=== PATIENT | female | born 1990 | race Two or more races ===

== ENCOUNTER → 2016-10-21 | Outpatient (CLI) | payer OTHER ==
[2016-07-18 16:15] VITALS: BP 116/66
[~2016-10-21] MED LIST: CALC200T3 PO; DOCU-27 PO; MEDR150D3 IM; NAPR500T PO; NITR100C62 PO; OXYC-323 PO; PREN1TAB54 PO
--- NOTE | 2016-10-21 13:05 | KCIC ---
PROCEDURE Obstetric ultrasound. HISTORY Uterine size/date discrepancy. FINDINGS Sonographic evaluation of the uterus and fetus was performed transabdominally. The cervix is closed and measures 4.3 centimeters. There is a single fetus in vertex presentation. heart rate is 157 beats per minute. Estimated gestational age based on measurements is 19 weeks 0 days. The placenta is anterior. There is no placenta previa. Amniotic fluid volume is visually normal. Images of the brain reveal no hydrocephalus. The choroid plexus appears normal. The stomach bubble is visualized. The heart is four-chamber on real-time scanning, but this is not clearly demonstrated on these images. extremities appear normal. The cord is three-vessel. The bladder is visualized. Images of the kidneys reveal no hydronephrosis. No was/lip morphology appears normal. The diaphragm is complete. Visualization of the spine is limited, but no defects are appreciated. The profile appears normal. IMPRESSION - Single fetus in vertex presentation. heart rate 157 beats per minute. Estimated gestational age based on measurements 19 weeks 0 days. - The assessment of the heart, spine and brain were limited currently. No anomalies are seen. Follow-up could further evaluate. Electronically signed by: Eliseo Washington (Oct 21, 2016 13:04:18)
== END | disposition home or self-care (01) ==
LOC: KCIC US 10:22
PROVIDERS: ATTEND Obstetrics & Gynecology
DX: O26.841 Uterine size-date discrepancy, first trimester (principal); Z3A.14 14 weeks gestation of pregnancy
CPT/HCPCS: 76805

== ENCOUNTER 2016-12-21 20:38 | Observation (INO) | payer OTHER ==
[2016-07-18 16:15] VITALS: BP 116/66
[2016-12-21] MEDS ORDERED: IV RINGERS,LACTATED 1000ML 1,000 ML IV SCH (20:45)
[2016-12-21] MEDS ORDERED: CYCLOBENZAPRINE 10 MG TABLET. PO ONE (22:00)
== END 2016-12-21 23:24 | disposition home or self-care (01) ==
LOC: 3 SO LND 20:38
PROVIDERS: ADMIT Obstetrics & Gynecology; ATTEND Obstetrics & Gynecology
DX: O26.892 Other specified pregnancy related conditions, second trimester (principal); M54.5 Low back pain; M25.552 Pain in left hip; Z3A.27 27 weeks gestation of pregnancy
CPT/HCPCS: G0378; G0379

== ENCOUNTER 2017-03-03 12:44 | Observation (INO) | payer OTHER ==
[2016-07-18 16:15] VITALS: BP 116/66
[~2017-03-03 12:44] MED LIST changes: +DOCU-109 PO; -DOCU-27 PO
[2017-03-03] MEDS ORDERED: IV RINGERS,LACTATED 1000ML 1,000 ML IV SCH (12:58)
[2017-03-03] MEDS ORDERED: LIDOCAINE 1% PF 30 ML VIAL. INJ PRN (13:00)
[2017-03-03] MEDS ORDERED: OXYTOCIN 30 UNIT/500 ML PREMIX 500 ML IV PRN ×2 (13:00)
[2017-03-03] MEDS ORDERED: fentaNYL PF VIAL 100 MCG/2 ML VIAL IV PRN (13:00)
[2017-03-03] MEDS ORDERED: BUTORPHANOL 2 MG/ML VIAL. IV PRN (13:00)
[2017-03-03] MEDS ORDERED: ACETAMINOPHEN 325 MG TABLET. PO PRN (13:00)
[2017-03-03] MEDS ORDERED: MAG HYDROX/ALUMINUM HYD/SIMETH 30 ML ORAL.SUSP PO PRN (13:00)
[2017-03-03] MEDS ORDERED: DOCUSATE SODIUM 283 MG/5 ML ENEMA. PR PRN (13:00)
[2017-03-03] MEDS ORDERED: 0.9 % SODIUM CHLORIDE 10 ML DISP.SYRIN. IV PRN (13:00)
[2017-03-03] MEDS ORDERED: CITRIC ACID/SODIUM CITRATE 30 ML SOLUTION. PO PRN (13:00)
[2017-03-03] MEDS ORDERED: ZOLPIDEM 5 MG TABLET. PO PRN (13:00)
[2017-03-03] MEDS ORDERED: TERBUTALINE 1 MG/ML VIAL. SQ PRN (13:00)
[2017-03-03] MEDS ORDERED: ONDANSETRON PF 4 MG/2 ML VIAL. IV PRN (13:00)
== END 2017-03-03 17:15 | disposition home or self-care (01) ==
LOC: 3 SO LND 12:44
PROVIDERS: ADMIT Obstetrics & Gynecology; ATTEND Obstetrics & Gynecology
DX: Z34.93 Encounter for supervision of normal pregnancy, unspecified, third trimester (principal); Z3A.37 37 weeks gestation of pregnancy
CPT/HCPCS: C1887; G0378; G0379

== ENCOUNTER 2017-03-09 19:57 | Observation (INO) | payer OTHER ==
[2016-07-18 16:15] VITALS: BP 116/66
== END 2017-03-09 23:57 | disposition home or self-care (01) ==
LOC: 3 SO LND 19:57
PROVIDERS: ADMIT Obstetrics & Gynecology; ATTEND Obstetrics & Gynecology
DX: O62.9 Abnormality of forces of labor, unspecified (principal); Z3A.38 38 weeks gestation of pregnancy
CPT/HCPCS: G0378; G0379

== ENCOUNTER 2017-03-11 21:47 | Inpatient (IN) | payer OTHER ==
[~2017-03-11] VITALS: Ht 152.4 cm; Wt 82.1 kg
[2017-03-11] MEDS ORDERED: 0.9 % SODIUM CHLORIDE 10 ML DISP.SYRIN. IV PRN (22:30)
[2017-03-11] MEDS ORDERED: fentaNYL PF VIAL 100 MCG/2 ML VIAL IV PRN (22:30)
[2017-03-11] MEDS ORDERED: ACETAMINOPHEN 325 MG TABLET. PO PRN (22:30)
[2017-03-11] MEDS ORDERED: BUTORPHANOL 2 MG/ML VIAL. IV PRN ×2 (22:30)
[2017-03-11] MEDS ORDERED: LIDOCAINE 1% PF 30 ML VIAL. INJ PRN (22:30)
[2017-03-11] MEDS ORDERED: TERBUTALINE 1 MG/ML VIAL. SQ PRN (22:30)
[2017-03-11] MEDS ORDERED: IBUPROFEN 600 MG TABLET. PO PRN (22:30)
[2017-03-11] MEDS ORDERED: OXYTOCIN 30 UNIT/500 ML PREMIX 500 ML IV PRN (22:30)
[2017-03-11] MEDS ORDERED: ONDANSETRON PF 4 MG/2 ML VIAL. IV PRN (22:30)
[2017-03-11 22:33] VITALS: BP 115/55
[2017-03-11 22:38] LABS: HEMATOCRIT 34.4 % (36.0-47.0); HEMOGLOBIN 11.9 g/dL (12.0-15.5); RED BLOOD COUNT 3.95 x10^6/uL (3.50-5.40); RED CELL DISTRIBUTION WIDTH 14.3 % (11.5-14.5); WHITE BLOOD COUNT 16.1 x10^3/uL (4.0-11.0)
[2017-03-11] MEDS ORDERED: OXYTOCIN 30 UNIT/500 ML PREMIX 500 ML IV ONE (23:00)
[2017-03-11] MEDS ORDERED: PENICILLIN G K 5,000,000 UNIT in IV NORMAL SALINE 100ML 100 ML IV ONE (23:00)
[2017-03-11] MEDS: IV RINGERS,LACTATED 1000ML 1,000 ML IV SCH ×2 (23:11→23:12)
[2017-03-11] MEDS ORDERED: ROPIVacaine 0.2% IN 0.9%NACL PF 40 MG/20 ML DISP.SYRIN. ONE (23:50)
[2017-03-11] MEDS ORDERED: L&D EPIDURAL CASSETTE 0 ML EP ONE (23:50)
--- NOTE | 2017-03-12 01:28 | PDOC1 ---
OB - History Hx of Present Care: Good Care Ultrasounds: Normal mid trimester US Obstetrical Complications: None Medical Complications: None Past Family/Social History * Past Medical, Surgical, Family and Obstetric Histories reviewed from chart. Blood Type: O+ Rubella: Immune RPR/VDRL: Negative GBS Status: Unknown HBsAG: Negative OB - Chief Complaint & HPI Date of Admission: Date of Admission: Mar 11, 2017 at 21:47 Chief Complaint/History : 3 Para: 2 EGA: 39 Reason for admission: active labor Admission Nurse Assessment Rev: Yes Problems: OB - Admission Exam Physical Exam Vitals: VS - Last 72 Hours, by Label Date Time Temp Pulse Resp B/P (MAP) Pulse Ox O2 Delivery O2 Flow Rate FiO2 03/11/17 22:33 98.6 99 20 115/55 (75) Room Air 98.6 HEENT: Normal Heart: Regular Rate Lungs: Clear Abdomen: Gravid, Non tender, Soft Extremities: Edema Reflexes: Normal Cervical Dilatation: 5cm Effacement: 75% Station: -2 Membranes: Ruptured Amniotic Fluid: Clear Heart Rate: Normal Accelerations: Accelerations Present Decelerations: No decelerations 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 Start Pen G prophylaxis. JOHN WOODS Jr, MD Mar 12, 2017 01:28
[2017-03-12] MEDS ORDERED: PHENYLEPH/MINERAL OIL/PETROLAT RECTAL OINTMENT 28GM TUBE. RC PRN (01:30)
[2017-03-12] MEDS ORDERED: MAGNESIUM HYDROXIDE 2,400 MG/30 ML ORAL.SUSP. PO PRN (01:30)
[2017-03-12] MEDS ORDERED: 0.9 % SODIUM CHLORIDE 10 ML DISP.SYRIN. IV PRN (01:30)
[2017-03-12] MEDS ORDERED: BENZOCAINE 20% TOPICAL AEROSOL SPRAY 57GM CAN. TP PRN (01:30)
[2017-03-12] MEDS ORDERED: OXYTOCIN 30 UNIT/500 ML PREMIX 500 ML IV PRN (01:30)
[2017-03-12] MEDS ORDERED: ACETAMINOPHEN 325 MG TABLET. PO PRN (01:30)
[2017-03-12] MEDS ORDERED: SIMETHICONE 80 MG TAB.CHEW PO PRN (01:30)
[2017-03-12] MEDS ORDERED: MAG HYDROX/ALUMINUM HYD/SIMETH 30 ML ORAL.SUSP PO PRN (01:30)
[2017-03-12] MEDS ORDERED: diphenhydrAMINE HCL 25 MG CAPSULE PO PRN (01:30)
[2017-03-12] MEDS ORDERED: ZOLPIDEM 5 MG TABLET. PO PRN (01:30)
[2017-03-12] MEDS ORDERED: HYDROCORTISONE 1% TOPICAL OINTMENT 30GM TUBE. TP PRN (01:30)
[2017-03-12] MEDS ORDERED: MMR per PROTOCOL. MC PRN (01:30)
--- NOTE | 2017-03-12 01:30 | PDOC ---
VAGINAL DELIVERY DATE DATE: 03/12/17 TIME: 01:29 : 3 Para: 3 EGA: 39 VAGINAL DELIVERY: VTX VACCUM ASSISTED: No PLACENTA: Spontaneous 8/9 SEX: Female WEIGHT Weight [3165 gm ] Nuchal Cord: No Amniotic Fluid: Clear PAIN: Local EPISIOTOMY: No EXTENSION: No EBL 300 ml COMPLICATIONS none CONDITION pt. stable Signs of Intrauterine Infectio: None Shoulder Dystocia: No Problems: JOHN WOODS Jr, MD Mar 12, 2017 01:30
[2017-03-12] MEDS: IBUPROFEN 800 MG TABLET. PO PRN ×2 (02:11→13:10)
[2017-03-12] MEDS: oxyCODONE/APAP 5/325 1 TAB TABLET PO PRN ×4 (02:11→20:20)
[2017-03-12] MEDS ORDERED: PENICILLIN G K 2,500,000 UNIT in IV NORMAL SALINE 50ML 50 ML IV SCH (03:00)
[2017-03-12 04:15] VITALS: BP 94/55
[2017-03-12] MEDS: DOCUSATE SODIUM 100 MG CAPSULE. PO PRN (08:19)
[2017-03-12 10:23] VITALS: BP 91/54
[2017-03-12] MEDS ORDERED: IV RINGERS,LACTATED 1000ML 1,000 ML IV SCH (13:45)
[2017-03-12 14:22] VITALS: BP 76/41
[2017-03-12 15:00] VITALS: BP 100/60
[2017-03-12 19:57] VITALS: BP 94/53
[2017-03-13 04:43] LABS: BASO % 0 % (0-3); EOS % 2 % (0-3); HEMATOCRIT 34.8 % (36.0-47.0); HEMOGLOBIN 11.7 g/dL (12.0-15.5); LYMPH # 2.8 x10^3/uL (1.0-4.8); LYMPH % 34 % (24-48); MEAN CORPUSCULAR HEMOGLOBIN 30 pg (25-35); MEAN CORPUSCULAR HGB CONC 34 g/dL (31-37); MEAN CORPUSCULAR VOLUME 88 fL (79-100); MONO % 6 % (0-9); NEUT % 58 % (31-73); PLATELET COUNT 298 x10^3/uL (140-400); RED BLOOD COUNT 3.97 x10^6/uL (3.50-5.40); RED CELL DISTRIBUTION WIDTH 14.7 % (11.5-14.5); WHITE BLOOD COUNT 8.3 x10^3/uL (4.0-11.0)
[2017-03-13 04:54] VITALS: BP 104/66
[2017-03-13] MEDS: DOCUSATE SODIUM 100 MG CAPSULE. PO PRN (07:20)
[2017-03-13] MEDS: IBUPROFEN 800 MG TABLET. PO PRN ×2 (07:20→14:20)
[2017-03-13 07:29] LABS: RPR REFLEX Non Reactive (Non Reactive)
[2017-03-13] MEDS ORDERED: FERROUS SULFATE 325 MG TABLET. PO SCH (08:00)
--- NOTE | 2017-03-13 08:51 | PDOC ---
Date and Time Patient seen 03/13/17 08:20 Known inadvertent dural puncture during labor epidural placement 03/11. Also c/o neck pain/spasm. Positional headache that resolves when supine. No visual changes or nausea. Neck is supple with full range of motion, afebrile. Options discussed with patient, she wants to wait to see if headache resolves without another procedure. I instructed her to call us if her if she develops nausea, visual changes, or if her headache worsens or changes in any way. She understands, questions answered. Discussed with Dr Head. Current Medications Current Medications Sodium Chloride (Normal Saline Flush) 3 ml QSHIFT PRN IV AFTER MEDS AND BLOOD DRAWS; Start 03/11/17 at 22:30; Stop 03/12/17 at 01:43; Status DC Ringer's Solution 1,000 ml @ 125 mls/hr Q8H IV Last administered on 03/11/17t 23:12; Start 03/11/17 at 22:18 Butorphanol Tartrate (Stadol) 1 mg PRN Q1HR PRN IV mild to moderate labor pain ; Start 03/11/17 at 22:30 Butorphanol Tartrate (Stadol) 2 mg PRN Q1HR PRN IV Severe labor pain; Start 03/11/17 at 22:30 Fentanyl Citrate (Fentanyl 2ml Vial) 100 mcg PRN Q10MIN PRN IV Labor pain; Start 03/11/17 at 22:30 Acetaminophen (Tylenol) 650 mg PRN Q6HRS PRN PO MILD PAIN / TEMP; Start at 22:30; Stop 03/12/17 at 01:43; Status DC Ondansetron HCl (Zofran) 4 mg PRN Q4HRS PRN IV NAUSEA/VOMITING; Start 03/11/17 at 22:30 Terbutaline Sulfate (Brethine) 0.25 mg 1X PRN PRN SQ SEE COMMENTS; Start at 22:30; Stop 03/12/17 at 22:29; Status DC Lidocaine HCl 30 ml 1X PRN PRN INJ SEE COMMENTS; Start 03/11/17 at 22:30; Stop 03/13/17 at 22:29 Oxytocin/Sodium Chloride 500 ml @ 0 mls/hr CONT PRN PRN IV Post delivery bleeding; Start 03/11/17 at 22:30 Ibuprofen (Motrin) 600 mg PRN Q6HRS PRN PO MODERATE PAIN; Start 03/11/17 at 22: 30; Stop 03/12/17 at 01:43; Status DC Penicillin G Potassium [id number] unit/Sodium Chloride 100 ml @ 100 mls/hr 1X ONCE IV Last administered on 03/11/17 23:11; Start 03/11/17 at 23:00; Stop at 23:59; Status DC Penicillin G Potassium [id number] unit/Sodium Chloride 50 ml @ 100 mls/hr Q4H IV ; Start 03/12/17 at 03:00 Oxytocin/Sodium Chloride 500 ml @ 0 mls/hr 1X ONCE IV Last administered on 03/11 23:11; Start 03/11/17 at 23:00; Stop 03/11/17 at 23:01; Status DC Ropivacaine/ Fentanyl/NS 0 ml @ As Directed STK-MED ONCE EP ; Start 03/11/17 at 23:50; Stop 03/11/17 at 23:51; Status DC Ropivacaine 40 mg STK-MED ONCE .ROUTE ; Start 03/11/17 at 23:50; Stop 03/11/17 at 23:51; Status DC Sodium Chloride (Normal Saline Flush) 10 ml QSHIFT PRN IV AFTER MEDS AND BLOOD DRAWS; Start 03/12/17 at 01:30 Oxytocin/Sodium Chloride 500 ml @ 62.5 mls/hr CONT PRN IV SEE I/O RECORD; Start 03/12/17 at 01:30; Stop 03/12/17 at 09:29; Status DC Acetaminophen (Tylenol) 650 mg PRN Q6HRS PRN PO MILD PAIN / TEMP; Start at 01:30 Ibuprofen (Motrin) 800 mg PRN Q8HRS PRN PO INFLAMMATION/PAIN PREVENTION Last administered on 03/13/17 07:20; Start 03/12/17 at 01:30 Docusate Sodium (Colace) 100 mg PRN BID PRN PO CONSTIPATION Last administered on 03/13/17 07:20; Start 03/12/17 at 01:30 Magnesium Hydroxide (Milk Of Magnesia) 2,400 mg PRN DAILY PRN PO CONSTIPATION; Start 03/12/17 at 01:30 Al Hydroxide/Mg Hydroxide (Mylanta Plus Xs) 30 ml PRN Q4HRS PRN PO HEARTBURN / GAS; Start 03/12/17 at 01:30 Simethicone (Gas-X) 80 mg PRN AFTMEALHC PRN PO GAS / BLOATING; Start 03/12/17 at 01:30 Diphenhydramine HCl (Benadryl) 25 mg PRN Q6HRS PRN PO ITCHING; Start 03/12/17 at 01:30 Benzocaine (Americaine) 1 spray PRN QID PRN TP TOPICAL PAIN; Start 03/12/17 at 01:30 Phenyleph/Shark Oil/Min Oil/Petrol (Preparation H) 1 camron PRN QID PRN RC RECTAL PAIN; Start 03/12/17 at 01:30 Hydrocortisone (Cortaid) 1 camron PRN QID PRN TP PERINEAL PAIN; Start 03/12/17 at 01:30 Ferrous Sulfate (Feosol) 325 mg BIDWMEALS PO ; Start 03/13/17 at 08:00 Zolpidem Tartrate (Ambien) 5 mg PRN QHS PRN PO INSOMNIA, MAY REPEAT X1; Start 03/12/17 at 01:30 Info (Do NOT chart on this placeholder) 1 ea 1X PRN PRN MC SEE COMMENTS; Start 03/12/17 at 01:30 Info (Do NOT chart on this placeholder) 1 ea 1X PRN PRN MC SEE COMMENTS; Start 03/12/17 at 01:30 Oxycodone/ Acetaminophen (Percocet 5/325) 2 tab PRN Q4HRS PRN PO MODERATE PAIN , SEVERE PAIN Last administered on 03/12/17t 20:20; Start 03/12/17 at 01:30 Ringer's Solution 1,000 ml @ 125 mls/hr Q8H IV ; Start 03/12/17 at 13:45 Active Scripts Active Macrobid 100 Mg Capsule (Nitrofurantoin Monohyd/M-Cryst) 100 Mg Capsule 1 Cap PO BID Percocet 5-325 Mg Tablet (Oxycodone/Acetaminophen) 1 Each Tablet 1-2 Tab PO Q4- 6HRS Reported Depo-Provera (Medroxyprogesterone Acetate) 150 Mg/1 Ml Disp.syrin 150 Mg IM Pertinent Labs/Test Laboratory Tests Test 03/11/17 22:30 03/13/17 04:00 White Blood Count 16.1 x10^3/uL (4.0-11.0) 8.3 x10^3/uL (4.0-11.0) Red Blood Count 3.95 x10^6/uL (3.50-5.40) 3.97 x10^6/uL (3.50-5.40) Hemoglobin 11.9 g/dL (12.0-15.5) 11.7 g/dL (12.0-15.5) Hematocrit 34.4 % (36.0-47.0) 34.8 % (36.0-47.0) Mean Corpuscular Volume 87 fL (79-100) 88 fL (79-100) Mean Corpuscular Hemoglobin 30 pg (25-35) 30 pg (25-35) Mean Corpuscular Hemoglobin Concent 35 g/dL (31-37) 34 g/dL (31-37) Red Cell Distribution Width 14.3 % (11.5-14.5) 14.7 % (11.5-14.5) Platelet Count 294 x10^3/uL (140-400) 298 x10^3/uL (140-400) RPR Titer Additional Testing Non reactive (Non Reactive) Neutrophils (%) (Auto) 58 % (31-73) Lymphocytes (%) (Auto) 34 % (24-48) Monocytes (%) (Auto) 6 % (0-9) Eosinophils (%) (Auto) 2 % (0-3) Basophils (%) (Auto) 0 % (0-3) Neutrophils # (Auto) 4.8 x10^3uL (1.8-7.7) Lymphocytes # (Auto) 2.8 x10^3/uL (1.0-4.8) Monocytes # (Auto) 0.5 x10^3/uL (0.0-1.1) Eosinophils # (Auto) 0.2 x10^3/uL (0.0-0.7) Basophils # (Auto) 0.0 x10^3/uL (0.0-0.2) Laboratory Tests Test 03/13/17 04:00 White Blood Count 8.3 x10^3/uL (4.0-11.0) Red Blood Count 3.97 x10^6/uL (3.50-5.40) Hemoglobin 11.7 g/dL (12.0-15.5) Hematocrit 34.8 % (36.0-47.0) Mean Corpuscular Volume 88 fL (79-100) Mean Corpuscular Hemoglobin 30 pg (25-35) Mean Corpuscular Hemoglobin Concent 34 g/dL (31-37) Red Cell Distribution Width 14.7 % (11.5-14.5) Platelet Count 298 x10^3/uL (140-400) Neutrophils (%) (Auto) 58 % (31-73) Lymphocytes (%) (Auto) 34 % (24-48) Monocytes (%) (Auto) 6 % (0-9) Eosinophils (%) (Auto) 2 % (0-3) Basophils (%) (Auto) 0 % (0-3) Neutrophils # (Auto) 4.8 x10^3uL (1.8-7.7) Lymphocytes # (Auto) 2.8 x10^3/uL (1.0-4.8) Monocytes # (Auto) 0.5 x10^3/uL (0.0-1.1) Eosinophils # (Auto) 0.2 x10^3/uL (0.0-0.7) Basophils # (Auto) 0.0 x10^3/uL (0.0-0.2) LAST VITALS Vital Signs Date Time Temp Pulse Resp B/P (MAP) Pulse Ox O2 Delivery O2 Flow Rate FiO2 03/13/17 04:54 97.8 79 16 104/66 (79) 98 Room Air 97.8 ADAN MEDINA MD Mar 13, 2017 08:51
[2017-03-13] MEDS: oxyCODONE/APAP 5/325 1 TAB TABLET PO PRN ×2 (09:05→14:21)
--- NOTE | 2017-03-13 09:31 | PDOC ---
OB Progress Note Date of Service 03/13/17 Time of Evaluation 0930 Notes Pt. feeling well. Pt. with spinal headache. Anesthesia is following as well. Lab Laboratory Tests Test 03/11/17 22:30 03/13/17 04:00 White Blood Count 16.1 x10^3/uL (4.0-11.0) 8.3 x10^3/uL (4.0-11.0) Red Blood Count 3.95 x10^6/uL (3.50-5.40) 3.97 x10^6/uL (3.50-5.40) Hemoglobin 11.9 g/dL (12.0-15.5) 11.7 g/dL (12.0-15.5) Hematocrit 34.4 % (36.0-47.0) 34.8 % (36.0-47.0) Mean Corpuscular Volume 87 fL (79-100) 88 fL (79-100) Mean Corpuscular Hemoglobin 30 pg (25-35) 30 pg (25-35) Mean Corpuscular Hemoglobin Concent 35 g/dL (31-37) 34 g/dL (31-37) Red Cell Distribution Width 14.3 % (11.5-14.5) 14.7 % (11.5-14.5) Platelet Count 294 x10^3/uL (140-400) 298 x10^3/uL (140-400) RPR Titer Additional Testing Non reactive (Non Reactive) Neutrophils (%) (Auto) 58 % (31-73) Lymphocytes (%) (Auto) 34 % (24-48) Monocytes (%) (Auto) 6 % (0-9) Eosinophils (%) (Auto) 2 % (0-3) Basophils (%) (Auto) 0 % (0-3) Neutrophils # (Auto) 4.8 x10^3uL (1.8-7.7) Lymphocytes # (Auto) 2.8 x10^3/uL (1.0-4.8) Monocytes # (Auto) 0.5 x10^3/uL (0.0-1.1) Eosinophils # (Auto) 0.2 x10^3/uL (0.0-0.7) Basophils # (Auto) 0.0 x10^3/uL (0.0-0.2) Laboratory Tests Test 03/13/17 04:00 White Blood Count 8.3 x10^3/uL (4.0-11.0) Red Blood Count 3.97 x10^6/uL (3.50-5.40) Hemoglobin 11.7 g/dL (12.0-15.5) Hematocrit 34.8 % (36.0-47.0) Mean Corpuscular Volume 88 fL (79-100) Mean Corpuscular Hemoglobin 30 pg (25-35) Mean Corpuscular Hemoglobin Concent 34 g/dL (31-37) Red Cell Distribution Width 14.7 % (11.5-14.5) Platelet Count 298 x10^3/uL (140-400) Neutrophils (%) (Auto) 58 % (31-73) Lymphocytes (%) (Auto) 34 % (24-48) Monocytes (%) (Auto) 6 % (0-9) Eosinophils (%) (Auto) 2 % (0-3) Basophils (%) (Auto) 0 % (0-3) Neutrophils # (Auto) 4.8 x10^3uL (1.8-7.7) Lymphocytes # (Auto) 2.8 x10^3/uL (1.0-4.8) Monocytes # (Auto) 0.5 x10^3/uL (0.0-1.1) Eosinophils # (Auto) 0.2 x10^3/uL (0.0-0.7) Basophils # (Auto) 0.0 x10^3/uL (0.0-0.2) Medications Current Medications Sodium Chloride (Normal Saline Flush) 3 ml QSHIFT PRN IV AFTER MEDS AND BLOOD DRAWS; Start 03/11/17 at 22:30; Stop 03/12/17 at 01:43; Status DC Ringer's Solution 1,000 ml @ 125 mls/hr Q8H IV Last administered on 03/11/17t 23:12; Start 03/11/17 at 22:18 Butorphanol Tartrate (Stadol) 1 mg PRN Q1HR PRN IV mild to moderate labor pain ; Start 03/11/17 at 22:30 Butorphanol Tartrate (Stadol) 2 mg PRN Q1HR PRN IV Severe labor pain; Start 03/11/17 at 22:30 Fentanyl Citrate (Fentanyl 2ml Vial) 100 mcg PRN Q10MIN PRN IV Labor pain; Start 03/11/17 at 22:30 Acetaminophen (Tylenol) 650 mg PRN Q6HRS PRN PO MILD PAIN / TEMP; Start at 22:30; Stop 03/12/17 at 01:43; Status DC Ondansetron HCl (Zofran) 4 mg PRN Q4HRS PRN IV NAUSEA/VOMITING; Start 03/11/17 at 22:30 Terbutaline Sulfate (Brethine) 0.25 mg 1X PRN PRN SQ SEE COMMENTS; Start at 22:30; Stop 03/12/17 at 22:29; Status DC Lidocaine HCl 30 ml 1X PRN PRN INJ SEE COMMENTS; Start 03/11/17 at 22:30; Stop 03/13/17 at 22:29 Oxytocin/Sodium Chloride 500 ml @ 0 mls/hr CONT PRN PRN IV Post delivery bleeding; Start 03/11/17 at 22:30 Ibuprofen (Motrin) 600 mg PRN Q6HRS PRN PO MODERATE PAIN; Start 03/11/17 at 22: 30; Stop 03/12/17 at 01:43; Status DC Penicillin G Potassium [id number] unit/Sodium Chloride 100 ml @ 100 mls/hr 1X ONCE IV Last administered on 03/11/17 23:11; Start 03/11/17 at 23:00; Stop at 23:59; Status DC Penicillin G Potassium [id number] unit/Sodium Chloride 50 ml @ 100 mls/hr Q4H IV ; Start 03/12/17 at 03:00 Oxytocin/Sodium Chloride 500 ml @ 0 mls/hr 1X ONCE IV Last administered on 03/11 23:11; Start 03/11/17 at 23:00; Stop 03/11/17 at 23:01; Status DC Ropivacaine/ Fentanyl/NS 0 ml @ As Directed STK-MED ONCE EP ; Start 03/11/17 at 23:50; Stop 03/11/17 at 23:51; Status DC Ropivacaine 40 mg STK-MED ONCE .ROUTE ; Start 03/11/17 at 23:50; Stop 03/11/17 at 23:51; Status DC Sodium Chloride (Normal Saline Flush) 10 ml QSHIFT PRN IV AFTER MEDS AND BLOOD DRAWS; Start 03/12/17 at 01:30 Oxytocin/Sodium Chloride 500 ml @ 62.5 mls/hr CONT PRN IV SEE I/O RECORD; Start 03/12/17 at 01:30; Stop 03/12/17 at 09:29; Status DC Acetaminophen (Tylenol) 650 mg PRN Q6HRS PRN PO MILD PAIN / TEMP; Start at 01:30 Ibuprofen (Motrin) 800 mg PRN Q8HRS PRN PO INFLAMMATION/PAIN PREVENTION Last administered on 03/13/17 07:20; Start 03/12/17 at 01:30 Docusate Sodium (Colace) 100 mg PRN BID PRN PO CONSTIPATION Last administered on 03/13/17 07:20; Start 03/12/17 at 01:30 Magnesium Hydroxide (Milk Of Magnesia) 2,400 mg PRN DAILY PRN PO CONSTIPATION; Start 03/12/17 at 01:30 Al Hydroxide/Mg Hydroxide (Mylanta Plus Xs) 30 ml PRN Q4HRS PRN PO HEARTBURN / GAS; Start 03/12/17 at 01:30 Simethicone (Gas-X) 80 mg PRN AFTMEALHC PRN PO GAS / BLOATING; Start 03/12/17 at 01:30 Diphenhydramine HCl (Benadryl) 25 mg PRN Q6HRS PRN PO ITCHING; Start 03/12/17 at 01:30 Benzocaine (Americaine) 1 spray PRN QID PRN TP TOPICAL PAIN; Start 03/12/17 at 01:30 Phenyleph/Shark Oil/Min Oil/Petrol (Preparation H) 1 camron PRN QID PRN RC RECTAL PAIN; Start 03/12/17 at 01:30 Hydrocortisone (Cortaid) 1 camron PRN QID PRN TP PERINEAL PAIN; Start 03/12/17 at 01:30 Ferrous Sulfate (Feosol) 325 mg BIDWMEALS PO ; Start 03/13/17 at 08:00 Zolpidem Tartrate (Ambien) 5 mg PRN QHS PRN PO INSOMNIA, MAY REPEAT X1; Start 03/12/17 at 01:30 Info (Do NOT chart on this placeholder) 1 ea 1X PRN PRN MC SEE COMMENTS; Start 03/12/17 at 01:30 Info (Do NOT chart on this placeholder) 1 ea 1X PRN PRN MC SEE COMMENTS; Start 03/12/17 at 01:30 Oxycodone/ Acetaminophen (Percocet 5/325) 2 tab PRN Q4HRS PRN PO MODERATE PAIN , SEVERE PAIN Last administered on 03/13/17t 09:05; Start 03/12/17 at 01:30 Ringer's Solution 1,000 ml @ 125 mls/hr Q8H IV ; Start 03/12/17 at 13:45 Active Scripts Active Macrobid 100 Mg Capsule (Nitrofurantoin Monohyd/M-Cryst) 100 Mg Capsule 1 Cap PO BID Percocet 5-325 Mg Tablet (Oxycodone/Acetaminophen) 1 Each Tablet 1-2 Tab PO Q4- 6HRS Reported Depo-Provera (Medroxyprogesterone Acetate) 150 Mg/1 Ml Disp.syrin 150 Mg IM Exam Abd: soft, non tender, fundus firm Assessment PPD# 1 s/p Plan of Care: Continue current Tx, Mgmt JOHN WOODS Jr, MD Mar 13, 2017 09:31
[2017-03-13 11:00] VITALS: BP 98/65
[2017-03-13 15:00] VITALS: BP 104/68
[2017-03-13 19:20] VITALS: BP 107/61
[2017-03-14 00:02] VITALS: BP 106/56
[2017-03-14] MEDS: IBUPROFEN 800 MG TABLET. PO PRN ×2 (00:04→08:01)
[2017-03-14] MEDS: DOCUSATE SODIUM 100 MG CAPSULE. PO PRN (08:01)
[2017-03-14 08:45] VITALS: BP 117/67
--- NOTE | 2017-03-14 09:49 | PDOC ---
OB Progress Note Date of Service 03/14/17 Time of Evaluation 0948 Notes Pt. feeling well. Headache improved. Lab Laboratory Tests Test 03/13/17 04:00 White Blood Count 8.3 x10^3/uL (4.0-11.0) Red Blood Count 3.97 x10^6/uL (3.50-5.40) Hemoglobin 11.7 g/dL (12.0-15.5) Hematocrit 34.8 % (36.0-47.0) Mean Corpuscular Volume 88 fL (79-100) Mean Corpuscular Hemoglobin 30 pg (25-35) Mean Corpuscular Hemoglobin Concent 34 g/dL (31-37) Red Cell Distribution Width 14.7 % (11.5-14.5) Platelet Count 298 x10^3/uL (140-400) Neutrophils (%) (Auto) 58 % (31-73) Lymphocytes (%) (Auto) 34 % (24-48) Monocytes (%) (Auto) 6 % (0-9) Eosinophils (%) (Auto) 2 % (0-3) Basophils (%) (Auto) 0 % (0-3) Neutrophils # (Auto) 4.8 x10^3uL (1.8-7.7) Lymphocytes # (Auto) 2.8 x10^3/uL (1.0-4.8) Monocytes # (Auto) 0.5 x10^3/uL (0.0-1.1) Eosinophils # (Auto) 0.2 x10^3/uL (0.0-0.7) Basophils # (Auto) 0.0 x10^3/uL (0.0-0.2) Medications Current Medications Sodium Chloride (Normal Saline Flush) 3 ml QSHIFT PRN IV AFTER MEDS AND BLOOD DRAWS; Start 03/11/17 at 22:30; Stop 03/12/17 at 01:43; Status DC Ringer's Solution 1,000 ml @ 125 mls/hr Q8H IV Last administered on 03/11/17t 23:12; Start 03/11/17 at 22:18; Stop 03/13/17 at 16:04; Status DC Butorphanol Tartrate (Stadol) 1 mg PRN Q1HR PRN IV mild to moderate labor pain ; Start 03/11/17 at 22:30; Stop 03/13/17 at 16:04; Status DC Butorphanol Tartrate (Stadol) 2 mg PRN Q1HR PRN IV Severe labor pain; Start 03/11/17 at 22:30; Stop 03/13/17 at 16:04; Status DC Fentanyl Citrate (Fentanyl 2ml Vial) 100 mcg PRN Q10MIN PRN IV Labor pain; Start 03/11/17 at 22:30; Stop 03/13/17 at 16:04; Status DC Acetaminophen (Tylenol) 650 mg PRN Q6HRS PRN PO MILD PAIN / TEMP; Start at 22:30; Stop 03/12/17 at 01:43; Status DC Ondansetron HCl (Zofran) 4 mg PRN Q4HRS PRN IV NAUSEA/VOMITING; Start 03/11/17 at 22:30 Terbutaline Sulfate (Brethine) 0.25 mg 1X PRN PRN SQ SEE COMMENTS; Start at 22:30; Stop 03/12/17 at 22:29; Status DC Lidocaine HCl 30 ml 1X PRN PRN INJ SEE COMMENTS; Start 03/11/17 at 22:30; Stop 03/13/17 at 16:04; Status DC Oxytocin/Sodium Chloride 500 ml @ 0 mls/hr CONT PRN PRN IV Post delivery bleeding; Start 03/11/17 at 22:30; Stop 03/13/17 at 16:04; Status DC Ibuprofen (Motrin) 600 mg PRN Q6HRS PRN PO MODERATE PAIN; Start 03/11/17 at 22: 30; Stop 03/12/17 at 01:43; Status DC Penicillin G Potassium [id number] unit/Sodium Chloride 100 ml @ 100 mls/hr 1X ONCE IV Last administered on 03/11/17 23:11; Start 03/11/17 at 23:00; Stop at 23:59; Status DC Penicillin G Potassium [id number] unit/Sodium Chloride 50 ml @ 100 mls/hr Q4H IV ; Start 03/12/17 at 03:00; Stop 03/13/17 at 16:04; Status DC Oxytocin/Sodium Chloride 500 ml @ 0 mls/hr 1X ONCE IV Last administered on 03/11 23:11; Start 03/11/17 at 23:00; Stop 03/11/17 at 23:01; Status DC Ropivacaine/ Fentanyl/NS 0 ml @ As Directed STK-MED ONCE EP ; Start 03/11/17 at 23:50; Stop 03/11/17 at 23:51; Status DC Ropivacaine 40 mg STK-MED ONCE .ROUTE ; Start 03/11/17 at 23:50; Stop 03/11/17 at 23:51; Status DC Sodium Chloride (Normal Saline Flush) 10 ml QSHIFT PRN IV AFTER MEDS AND BLOOD DRAWS; Start 03/12/17 at 01:30; Stop 03/13/17 at 16:04; Status DC Oxytocin/Sodium Chloride 500 ml @ 62.5 mls/hr CONT PRN IV SEE I/O RECORD; Start 03/12/17 at 01:30; Stop 03/12/17 at 09:29; Status DC Acetaminophen (Tylenol) 650 mg PRN Q6HRS PRN PO MILD PAIN / TEMP; Start at 01:30 Ibuprofen (Motrin) 800 mg PRN Q8HRS PRN PO INFLAMMATION/PAIN PREVENTION Last administered on 03/14/17 08:01; Start 03/12/17 at 01:30 Docusate Sodium (Colace) 100 mg PRN BID PRN PO CONSTIPATION Last administered on 03/14/17 08:01; Start 03/12/17 at 01:30 Magnesium Hydroxide (Milk Of Magnesia) 2,400 mg PRN DAILY PRN PO CONSTIPATION; Start 03/12/17 at 01:30 Al Hydroxide/Mg Hydroxide (Mylanta Plus Xs) 30 ml PRN Q4HRS PRN PO HEARTBURN / GAS; Start 03/12/17 at 01:30 Simethicone (Gas-X) 80 mg PRN AFTMEALHC PRN PO GAS / BLOATING; Start 03/12/17 at 01:30 Diphenhydramine HCl (Benadryl) 25 mg PRN Q6HRS PRN PO ITCHING; Start 03/12/17 at 01:30 Benzocaine (Americaine) 1 spray PRN QID PRN TP TOPICAL PAIN; Start 03/12/17 at 01:30; Stop 03/13/17 at 16:04; Status DC Phenyleph/Shark Oil/Min Oil/Petrol (Preparation H) 1 camron PRN QID PRN RC RECTAL PAIN; Start 03/12/17 at 01:30 Hydrocortisone (Cortaid) 1 camron PRN QID PRN TP PERINEAL PAIN; Start 03/12/17 at 01:30 Ferrous Sulfate (Feosol) 325 mg BIDWMEALS PO ; Start 03/13/17 at 08:00; Stop 03/13 at 16:04; Status DC Zolpidem Tartrate (Ambien) 5 mg PRN QHS PRN PO INSOMNIA, MAY REPEAT X1; Start 03/12/17 at 01:30 Info (Do NOT chart on this placeholder) 1 ea 1X PRN PRN MC SEE COMMENTS; Start 03/12/17 at 01:30 Info (Do NOT chart on this placeholder) 1 ea 1X PRN PRN MC SEE COMMENTS; Start 03/12/17 at 01:30; Stop 03/13/17 at 16:04; Status DC Oxycodone/ Acetaminophen (Percocet 5/325) 2 tab PRN Q4HRS PRN PO MODERATE PAIN , SEVERE PAIN Last administered on 03/13/17t 14:21; Start 03/12/17 at 01:30 Ringer's Solution 1,000 ml @ 125 mls/hr Q8H IV ; Start 03/12/17 at 13:45; Stop 03/13/17 at 16:04; Status DC Active Scripts Active Macrobid 100 Mg Capsule (Nitrofurantoin Monohyd/M-Cryst) 100 Mg Capsule 1 Cap PO BID Percocet 5-325 Mg Tablet (Oxycodone/Acetaminophen) 1 Each Tablet 1-2 Tab PO Q4- 6HRS Reported Depo-Provera (Medroxyprogesterone Acetate) 150 Mg/1 Ml Disp.syrin 150 Mg IM Exam Abd: soft, non tender, fundus firm Assessment A: PPD#2 s/p Plan of Care: See new orders (D/c home.) JOHN WOODS Jr, MD Mar 14, 2017 09:49
--- NOTE | 2017-03-14 09:50 | DISCH ---
DISCHARGE INSTRUCTIONS Condition on Discharge Condition on Discharge: Stable Activity After Discharge Activity Instructions for Disc: Activity as tolerated Lifting Instructions after Dis: No heavy lifting Driving Instructions after Dis: Do not drive today Diet after Discharge Diet after Discharge: Regular Contacting the DRJuan after DC Call your doctor for: Concerns you may have Follow-Up Follow up with: Dr. Head in 6 weeks. JOHN HEAD Jr, MD Mar 14, 2017 09:50
[2017-03-14] MEDS ORDERED: DOCU-109 PO (09:53)
[2017-03-14] MEDS ORDERED: IBUP-1060 PO (09:53)
[2017-03-14] MEDS ORDERED: OXYC-323 PO (09:53)
[2017-03-14] MEDS: oxyCODONE/APAP 5/325 1 TAB TABLET PO PRN (11:06)
[2017-03-14 11:50] VITALS: BP 117/67
[2017-03-14 13:20] VITALS: BP 94/43
== END 2017-03-14 14:45 | disposition home or self-care (01) | DRG 775 ==
LOC: 3 SO LND 21:47 → OBSVTOIN 22:18 → 3 NORTH 03-12 04:15
PROVIDERS: ADMIT Obstetrics & Gynecology; ATTEND Obstetrics & Gynecology
PROC: 10E0XZZ Delivery of Products of Conception, External Approach (ICD-10-PCS; principal; 2017-03-12)
PROC: 3E0S3CZ (ICD-10-PCS; 2017-03-12)
PROC: 00HU33Z Insertion of Infusion Device into Spinal Canal, Percutaneous Approach (ICD-10-PCS; 2017-03-12)
DX: O62.3 Precipitate labor (principal); O89.4 Spinal and epidural anesthesia-induced headache during the puerperium; Z37.0 Single live birth; Z3A.39 39 weeks gestation of pregnancy
CPT/HCPCS: 36415; 85027; 86593; 86850; 86900; 86901; C1887; G0379; J2540; J2590; J7120

== ENCOUNTER 2021-03-13 01:08 | Emergency (ER) | payer SELFPAY ==
[~2021-03-13] VITALS: Ht 154.9 cm; Wt 84.0 kg
[~2021-03-13 01:08] MED LIST changes: +IBUP-1060 PO; +NAPR-683 PO; -NAPR500T PO; -OXYC-323 PO; +OXYC1TAB15 PO
[2021-03-13 01:42] VITALS: BP 111/69
[2021-03-13 01:52] LABS: BILIRUBIN,URINE NEGATIVE (NEG); CLARITY,URINE CLOUDY; COLOR,URINE YELLOW; NITRITE,URINE NEGATIVE (NEG); PH,URINE 6.5 (<5.0-8.0); PROTEIN,URINE 100 mg/dL (NEG-TRACE); UROBILINOGEN,URINE 0.2 mg/dL (0.2 mg/dL)
[2021-03-13 02:25] LABS: BACTERIA,URINE FEW /HPF (0-FEW); RBC,URINE TNTC /HPF (0-2); WBC,URINE TNTC /HPF (0-4)
[2021-03-13] MEDS ORDERED: PHEN-318 PO (02:33)
[2021-03-13] MEDS ORDERED: LEVO750T5 PO (02:33)
--- NOTE | 2021-03-13 02:34 | PHYS DOC ---
Past Medical History Past Medical History: Gallstones Past Surgical History: Cholecystectomy Smoking Status: Never Smoker Alcohol Use: None Drug Use: None General Adult EDM: Chief Complaint: PAIN ON URINATION HPI: HPI: Patient is a 30 year old female who present to ER for evaluation pain with urination and frequency for 2 days. Patient denies any fever, no abdominal pain, no nausea vomiting. Patient states she is not . Patient denies any blood in her urine. Review of Systems: Review of Systems: Constitutional: Denies fever or chills. [] Eyes: Denies change in visual acuity. [] HENT: Denies nasal congestion or sore throat. [] Respiratory: Denies cough or shortness of breath. [] Cardiovascular: Denies chest pain or edema. [] GI: Denies abdominal pain, nausea, vomiting, bloody stools or diarrhea. [] : Positive for dysuria and frequency Musculoskeletal: Denies back pain or joint pain. [] Integument: Denies rash. [] Neurologic: Denies headache, focal weakness or sensory changes. [] Endocrine: Denies polyuria or polydipsia. [] Lymphatic: Denies swollen glands. [] Psychiatric: Denies depression or anxiety. [] Heart Score: C/O Chest Pain: N/A Risk Factors: Risk Factors: DM, Current or recent (<one month) smoker, HTN, HLP, family history of CAD, obesity. Risk Scores: Score 0 - 3: 2.5% MACE over next 6 weeks - Discharge Home Score 4 - 6: 20.3% MACE over next 6 weeks - Admit for Clinical Observation Score 7 - 10: 72.7% MACE over next 6 weeks - Early Invasive Strategies Allergies: Allergies: Allergies Coded Allergies Type Severity Reaction Last Updated Verified No Known Allergies Allergy Unknown 01/31/15 Yes Physical Exam: PE: Constitutional: Well developed, well nourished, no acute distress, non-toxic appearance. [] HENT: Normocephalic, atraumatic, bilateral external ears normal, oropharynx moist, no oral exudates, nose normal. [] Eyes: PERRLA, EOMI, conjunctiva normal, no discharge. [] Neck: Normal range of motion, no tenderness, supple, no stridor. [] Cardiovascular:Heart rate regular rhythm, no murmur [] Lungs & Thorax: Bilateral breath sounds clear to auscultation [] Abdomen: Bowel sounds normal, soft, there is tenderness to palpation in suprapubic area, no masses, no pulsatile masses. [] Skin: Warm, dry, no erythema, no rash. [] Back: No tenderness, no CVA tenderness. [] Extremities: No tenderness, no cyanosis, no clubbing, ROM intact, no edema. [] Neurologic: Alert and oriented X 3, normal motor function, normal sensory function, no focal deficits noted. [] Psychologic: Affect normal, judgement normal, mood normal. [] Current Patient Data: Labs: Laboratory Tests Test 03/13/21 01:10 03/13/21 01:38 Urine Collection Type Unknown Urine Color Yellow Urine Clarity Cloudy Urine pH 6.5 (<5.0-8.0) Urine Specific [place] 1.020 (1.000-1.030) Urine Protein 100 mg/dL (NEG-TRACE) Urine Glucose (UA) Negative mg/dL (NEG) Urine Ketones (Stick) Negative mg/dL (NEG) Urine Blood Large (NEG) Urine Nitrite Negative (NEG) Urine Bilirubin Negative (NEG) Urine Urobilinogen Dipstick 0.2 mg/dL (0.2 mg/dL) Urine Leukocyte Esterase Large (NEG) Urine RBC Tntc /HPF (0-2) Urine WBC Tntc /HPF (0-4) Urine Squamous Epithelial Cells Few /LPF Urine Bacteria Few /HPF (0-FEW) POC Urine HCG, Qualitative Hcg negative (Negative) Vital Signs: Vital Signs Date Time Temp Pulse Resp B/P (MAP) Pulse Ox O2 Delivery O2 Flow Rate FiO2 03/13/21 01:42 98.4 89 18 111/69 (60) 99 Room Air 98.4 EKG: EKG: [] Radiology/Procedures: Radiology/Procedures: [] Course & Med Decision Making: Course & Med Decision Making Pertinent Labs and Imaging studies reviewed. (See chart for details) [] Dragon Disclaimer: Gricelda Disclaimer: This electronic medical record was generated, in whole or in part, using a voice recognition dictation system. Departure Departure Impression: Primary Impression: UTI (urinary tract infection) Disposition: HOME / SELF CARE / HOMELESS Condition: STABLE Referrals: NO PCP (PCP) Follow up with your doctor as needed Patient Instructions: Urinary Tract Infection Additional Instructions: Thank you for visiting our Emergency Department. We appreciate you trusting us with your care. If any additional problems come up don't hesitate to return to visit us. Please follow up with your primary care provider so they can plan additional care if needed and know about the problem that you had. If symptoms worsen come back to the Emergency Department. Any concerning symptoms that start such as chest pain, shortness of air, weakness or numbness on one side of the body, running high fevers or any other concerning symptoms return to the ER. Scripts Phenazopyridine Hcl (PYRIDIUM) 200 Mg Tablet 1 TAB PO TID for urinary discomfort for 2 Days, #6 TAB 0 Refills Prov: GERRY HERRERA DO 03/13/21 Levofloxacin (LEVOFLOXACIN) 750 Mg Tablet 1 TAB PO DAILY, #5 TAB Prov: GERRY HERRERA DO 03/13/21 GERRY HERRERA DO Mar 13, 2021 02:34
== END 2021-03-13 02:59 | disposition home or self-care (01) ==
LOC: ER 01:08
DX: N39.0 Urinary tract infection, site not specified (principal); Z90.49 Acquired absence of other specified parts of digestive tract
CPT/HCPCS: 81001; 81025; 87086; 99283